=== PATIENT | male | born 1955 | race American Indian/Alaskan Native ===

== ENCOUNTER 2019-04-14 08:48 | Emergency (ER) | payer SELFPAY ==
[2019-04-14 08:54] VITALS: BP 149/87
--- NOTE | 2019-04-14 10:11 | Emergency Department Report ---
ED ENT HPI - General Chief complaint: Nosebleed Stated complaint: NOSE BLEED Time Seen by Provider: 04/14/19 09:59 Source: patient Mode of arrival: Ambulatory Limitations: No Limitations - History of Present Illness Initial comments: Patient is 63 years old male with no significant past medical history. Patient presented to the ER complaining of epistaxis for the last 3 days on and off mainly from the right nastril. Patient denied any history of injury recently. Patient denied any headache, weakness numbness or tingling sensation. MD complaint: epistaxis -: days(s) (3) Severity: moderate - Related Data Allergies Allergy/AdvReac Type Severity Reaction Status Date / Time No Known Allergies Allergy Unverified 04/14/19 08:51 ED Dental HPI - General Chief complaint: Nosebleed Stated complaint: NOSE BLEED Time Seen by Provider: 04/14/19 09:59 Source: patient Mode of arrival: Ambulatory Limitations: No Limitations - Related Data Allergies Allergy/AdvReac Type Severity Reaction Status Date / Time No Known Allergies Allergy Unverified 04/14/19 08:51 ED Review of Systems ROS: Stated complaint: NOSE BLEED Other details as noted in HPI Comment: All other systems reviewed and negative Constitutional: denies: chills, fever ENT: epistaxis Respiratory: denies: cough, orthopnea, shortness of breath, SOB with exertion, SOB at rest Cardiovascular: denies: chest pain, palpitations Gastrointestinal: denies: abdominal pain, nausea, vomiting Musculoskeletal: denies: back pain Neurological: denies: headache, weakness ED Past Medical Hx - Past Medical History Previous Medical History?: No - Surgical History Past Surgical History?: No - Social History Smoking Status: Current Every Day Smoker Substance Use Type: Alcohol ED Physical Exam - General Limitations: No Limitations General appearance: alert, in no apparent distress - Head Head exam: Present: atraumatic, normocephalic, normal inspection - Eye Eye exam: Present: normal appearance, PERRL - ENT ENT exam: Present: normal exam, normal orophraynx, other (right nostril with active bleeding) - Neck Neck exam: Present: normal inspection, full ROM. Absent: tenderness, me ningismus, lymphadenopathy, thyromegaly - Respiratory Respiratory exam: Present: normal lung sounds bilaterally - Cardiovascular Cardiovascular Exam: Present: regular rate, normal rhythm, normal heart sounds - GI/Abdominal GI/Abdominal exam: Present: soft, normal bowel sounds. Absent: distended, tenderness, guarding, rebound, rigid, organomegaly, mass, bruit, pulsatile mass, hernia - Extremities Exam Extremities exam: Present: normal inspection, full ROM, normal capillary refill - Back Exam Back exam: Present: normal inspection, full ROM. Absent: CVA tenderness (R), CVA tenderness (L) - Neurological Exam Neurological exam: Present: alert, oriented X3, CN II-XII intact, normal gait - Psychiatric Psychiatric exam: Present: normal mood - Skin Skin exam: Present: warm, intact, normal color ED Course Vital Signs 04/14/19 08:52 Temperature 97.8 F Pulse Rate 61 Respiratory 17 Rate Blood Pressure 149/87 O2 Sat by Pulse 99 Oximetry - Procedure Description Procedures done: Rapid Rhinocort applied to the right nastril. Epistaxis stopped. No complication. Patient tolerated the procedure very well. ED Medical Decision Making - Lab Data Result diagrams: 04/14/19 10:17 04/14/19 10:17 - Medical Decision Making Patient is 63 years old male with no significant past medical history. Patient presented to the ER complaining of epistaxis for the last 3 days on and off mainly from the right nastril. Patient denied any history of injury recently. Patient denied any headache, weakness numbness or tingling sensation. Nasal packing using Rhinocort stopped the bleeding. Labs reviewed and is unremarkable. Patient discharged home with amoxicillin and tramadol for pain and advised to follow-up with his primary care physician in the next 2-3 days for removal of the nasal packing or return to the ER. Critical care attestation.: If time is entered above; I have spent that time in minutes in the direct care of this critically ill patient, excluding procedure time. ED Disposition Clinical Impression: Epistaxis Disposition: DC-01 TO HOME OR SELFCARE Is pt being admited?: No Condition: Stable Instructions: Epistaxis (ED) Referrals: PRIMARY CARE, [Referring] - 3-5 Days
[2019-04-14 10:34] LABS: Basophils # (Auto) 0.1 K/mm3 (0.0-0.1); Basophils % (Auto) 1.2 % (0.0-1.8); Eosinophils # (Auto) 0.1 K/mm3 (0.0-0.4); Eosinophils % (Auto) 1.4 % (0.0-4.3); Hematocrit 48.2 % (35.5-45.6); Hemoglobin 16.4 gm/dl (11.8-15.2); Lymphocytes # (Auto) 1.6 K/mm3 (1.2-5.4); Lymphocytes % (Auto) 21.8 % (13.4-35.0); Mean Corpuscular HGB Conc 34 % (32-34); Mean Corpuscular Volume 97 fl (84-94); Monocytes # (Auto) 0.6 K/mm3 (0.0-0.8); Platelet Count 304 K/mm3 (140-440); Red Blood Count 4.96 M/mm3 (3.65-5.03); Red Cell Distribution Width 14.9 % (13.2-15.2)
[2019-04-14] MEDS ORDERED: ZOFRAN IM ONE (10:35)
[2019-04-14] MEDS ORDERED: MORPHINE IM ONE (10:35)
[2019-04-14 10:45] LABS: INR 0.98 (0.87-1.13)
[2019-04-14 10:46] LABS: Partial Thromboplastin Time 27.6 Sec. (24.2-36.6)
[2019-04-14 10:56] LABS: Alanine Aminotransferase 12 units/L (7-56); Albumin 4.2 g/dL (3.9-5); BUN/Creatinine Ratio 8; Blood Urea Nitrogen 8 mg/dL (9-20); Calcium 9.2 mg/dL (8.4-10.2); Hemolysis Index 41
== END 2019-04-14 11:50 | disposition home or self-care (01) ==
LOC: ED 08:48
DX: R04.0 Epistaxis (principal); F17.200 Nicotine dependence, unspecified, uncomplicated
CPT/HCPCS: 30901; 36415; 80053; 85025; 85610; 85730; 96372; 99283; J2270; J2405

== ENCOUNTER 2020-03-27 16:19 | Emergency (ER) | payer MEDICARE ==
[2020-03-27 16:26] VITALS: BP 133/74
--- NOTE | 2020-03-27 17:46 | Emergency Department Report ---
Chief Complaint: Extremity Injury, Upper Stated Complaint: RIGHT HAND SWOLLEN Time Seen by Provider: 03/27/20 17:41 - HPI History of Present Illness: 64-year-old -[place] male presents to the emergency room stating that he twisted his right hand hand while drilling on Sunday. Patient states that it was painful and he had swelling. Patient states that he took his Tylenol 3 wrapped the paper bag with apple cider vinegar and the swelling went down. - Exam Vital Signs: Vital Signs 03/27/20 16:22 Temperature 98.1 F Pulse Rate 80 Respiratory 16 Rate Blood Pressure 133/74 O2 Sat by Pulse 98 Oximetry Physical Exam: Patient is alert and oriented x3 no acute distress. Right upper extremity hand full range of motion no swelling is no tenderness. Amatory without difficulties MSE screening note: Focused history and physical exam performed. Due to findings the following was ordered: 64-year-old -[place] male presents to the emergency room stating that he twisted his right hand hand while drilling on Sunday. Patient states that it was painful and he had swelling. Patient states that he took his Tylenol 3 wrapped the paper bag with apple cider vinegar and the swelling went down. Patient has full range of motion of his right hand no swelling minimal tenderness. Discussed the patient to continue taking his Tylenol 3 and follow- up with his primary care provider. ED Disposition for [facility] [place]position: Z-07 MED SCREENING EXAM-LEFT Is pt being admited?: No Does the pt Need Aspirin: No Condition: Stable Additional Instructions: Discussed the patient to continue taking his Tylenol 3 and follow-up with his primary care provider. Referrals: PRIMARY CARE, [Primary Care Provider] - 3-5 Days
== END 2020-03-27 18:02 | disposition left against medical advice (07) ==
LOC: ED 16:19
DX: M79.641 Pain in right hand (principal); M79.89 Other specified soft tissue disorders
CPT/HCPCS: 99282

== ENCOUNTER 2021-03-31 13:30 | Emergency (ER) | payer MEDICARE ==
[2021-03-31] MEDS ORDERED: ASPIRIN 325 MG TAB PO ONE (13:58)
--- NOTE | 2021-03-31 14:41 | XRay Report ---
CHEST 2 VIEWS INDICATION / CLINICAL INFORMATION: CP. COMPARISON: None available. FINDINGS: SUPPORT DEVICES: None. HEART / MEDIASTINUM: No significant abnormality. LUNGS / PLEURA: No significant pulmonary or pleural abnormality. No pneumothorax. ADDITIONAL FINDINGS: No significant additional findings. IMPRESSION: 1. No acute findings. Signer Name: Mariusz Beltran MD Signed: 03/31/2021 2:36 PM Workstation Name: [email or web address]
[2021-03-31 15:18] LABS: Basophils # (Auto) 0.1 K/mm3 (0.0-0.1); Basophils % (Auto) 1.1 % (0.0-1.8); Eosinophils # (Auto) 0.1 K/mm3 (0.0-0.4); Eosinophils % (Auto) 0.9 % (0.0-4.3); Hematocrit 41.8 % (35.5-45.6); Hemoglobin 14.2 gm/dl (11.8-15.2); Lymphocytes # (Auto) 1.8 K/mm3 (1.2-5.4); Mean Corpuscular HGB Conc 34 % (32-34); Mean Corpuscular Volume 94 fl (84-94); Monocytes # (Auto) 0.5 K/mm3 (0.0-0.8); Monocytes % (Auto) 7.7 % (0.0-7.3); Platelet Count 258 K/mm3 (140-440); Red Blood Count 4.44 M/mm3 (3.65-5.03); Red Cell Distribution Width 14.2 % (13.2-15.2)
[2021-03-31 15:43] LABS: Alanine Aminotransferase 11 units/L (7-56); Albumin 4.3 g/dL (3.9-5); BUN/Creatinine Ratio 14; Blood Urea Nitrogen 11 mg/dL (9-20); Hemolysis Index 5
--- NOTE | 2021-03-31 16:28 | Event Note ---
ED Screening Note Date of service: 03/31/21 Time: 16:27 ED Screening Note: 65-year-old male patient with history of hyperlipidemia and hypertension presents to the emergency department with complaints of dizziness and palpitations starting this morning. No recent trauma. No history of similar symptoms. Patient states he "feels off balance, especially when he walks." He has been compliant with his medication regimen. No vomiting or diarrhea. BP 106/71; review of past medical records indicates his blood pressure is usually higher at baseline. General: Awake, appropriately interactive, no acute distress. Neck: Supple. Full range of motion intact. Cardiovascular: Normal peripheral perfusion. Pulmonary: No respiratory distress. Patient is speaking normally without use of accessory muscles. Skin: No apparent rashes or lesions. Neurological: No facial asymmetry. Speech is clear. Follows commands. Patient is alert and oriented. Musculoskeletal: Moves all four extremities spontaneously with normal range of motion. Psych: Cooperative. Appropriate mood and affect. I have greeted and performed a focused rapid initial assessment of this patient. A comprehensive ED assessment and evaluation of the patient, analysis of all test results, and completion of the medical decision-making process will be conducted by additional ED providers. This initial assessment/diagnostic orders/clinical plan/treatment(s) is/are subject to change based on patients health status, clinical progression and re-assessment. Further treatment and workup at subsequent clinical provider's discretion. Patient/guardian urged not to elope from the ED as their condition may be serious if not clinically assessed and managed.
--- NOTE | 2021-03-31 21:32 | Emergency Department Report ---
ED General Adult HPI - General Chief complaint: Chest Pain Stated complaint: IRREGULAR HEART BEAT Time Seen by Provider: 03/31/21 21:06 Source: patient Mode of arrival: Ambulatory Limitations: No Limitations - History of Present Illness Initial comments: Patient presents to the emergency department with a chief complaint of irregular heartbeat. Patient states today he felt unlike himself and was having heart palpitations. Patient states he went to the fire department to get evaluated and was told that his blood pressure was okay but he should come to the hospital to get further work-up done. Patient denies any chest pain, shortness of breath, or headache. Patient states that he sees a physician and Dr. Carty in [place]. -: Sudden Severity scale (0 -10): 0 Consistency: now resolved Improves with: none Worsens with: none Associated Symptoms: denies other symptoms Treatments Prior to Arrival: none - Related Data Previous Rx's Medication Instructions Recorded Last Taken Type Amoxicillin [Amoxicillin TAB] 875 mg PO BID #14 tablet 04/14/19 Unknown Rx Ondansetron [Zofran Odt] 4 mg PO Q8HR PRN #14 tab.rapdis 04/14/19 Unknown Rx traMADoL [Ultram 50 MG tab] 50 mg PO Q4HR PRN #14 tablet 04/14/19 Unknown Rx Allergies Allergy/AdvReac Type Severity Reaction Status Date / Time No Known Allergies Allergy Verified 03/31/21 21:07 ED Review of Systems ROS: Stated complaint: IRREGULAR HEART BEAT Other details as noted in HPI Comment: All other systems reviewed and negative Constitutional: denies: chills, fever Eyes: denies: eye pain, eye discharge, vision change ENT: denies: ear pain, throat pain Respiratory: denies: cough, shortness of breath, wheezing Cardiovascular: palpitations. denies: chest pain Endocrine: no symptoms reported Gastrointestinal: denies: abdominal pain, nausea, diarrhea Genitourinary: denies: urgency, dysuria Musculoskeletal: denies: back pain, joint swelling, arthralgia Skin: denies: rash, lesions Neurological: denies: headache, weakness, paresthesias Psychiatric: denies: anxiety, depression Hematological/Lymphatic: denies: easy bleeding, easy bruising ED Past Medical Hx - Past Medical History Previous Medical History?: Yes Hx GERD: Yes Additional medical history: high cholesterol - Surgical History Past Surgical History?: Yes Additional Surgical History: ulcer surgery - Social History Smoking Status: Never Smoker Substance Use Type: None - Medications Home Medications: Home Medications Medication Instructions Recorded Confirmed Last Taken Type Amoxicillin [Amoxicillin TAB] 875 mg PO BID #14 tablet 04/14/19 Unknown Rx Ondansetron [Zofran Odt] 4 mg PO Q8HR PRN #14 tab.rapdis 04/14/19 Unknown Rx traMADoL [Ultram 50 MG tab] 50 mg PO Q4HR PRN #14 tablet 04/14/19 Unknown Rx ED Physical Exam - General Limitations: No Limitations General appearance: alert, in no apparent distress - Head Head exam: Present: atraumatic, normocephalic - Eye Eye exam: Present: normal appearance, PERRL, EOMI - ENT ENT exam: Present: mucous membranes moist - Neck Neck exam: Present: normal inspection - Respiratory Respiratory exam: Present: normal lung sounds bilaterally. Absent: respiratory distress - Cardiovascular Cardiovascular Exam: Present: regular rate, normal rhythm. Absent: systolic murmur, diastolic murmur, rubs, gallop - GI/Abdominal GI/Abdominal exam: Present: soft, normal bowel sounds. Absent: distended, tenderness - Rectal Rectal exam: Present: deferred - Extremities Exam Extremities exam: Present: normal inspection - Back Exam Back exam: Present: normal inspection - Neurological Exam Neurological exam: Present: alert, oriented X3, CN II-XII intact. Absent: motor sensory deficit - Psychiatric Psychiatric exam: Present: normal affect, normal mood - Skin Skin exam: Present: warm, dry, intact, normal color. Absent: rash ED Course Vital Signs 03/31/21 13:46 Temperature 98.2 F Pulse Rate 72 Respiratory 18 Rate Blood Pressure 106/71 [Right] O2 Sat by Pulse 98 Oximetry ED Medical Decision Making - Lab Data Result diagrams: 03/31/21 14:51 03/31/21 14:51 Lab Results 03/31/21 03/31/21 03/31/21 Range/Units 14:51 14:51 16:48 WBC 6.5 (4.5-11.0) K/mm3 RBC 4.44 (3.65-5.03) M/mm3 Hgb 14.2 (11.8-15.2) gm/dl Hct 41.8 (35.5-45.6) % MCV 94 (84-94) fl MCH 32 (28-32) pg MCHC 34 (32-34) % RDW 14.2 (13.2-15.2) % Plt Count 258 (140-440) K/mm3 Lymph % (Auto) 28.0 (13.4-35.0) % Baker % (Auto) 7.7 H (0.0-7.3) % Eos % (Auto) 0.9 (0.0-4.3) % Baso % (Auto) 1.1 (0.0-1.8) % Lymph # (Auto) 1.8 (1.2-5.4) K/mm3 Baker # (Auto) 0.5 (0.0-0.8) K/mm3 Eos # (Auto) 0.1 (0.0-0.4) K/mm3 Baso # (Auto) 0.1 (0.0-0.1) K/mm3 Seg Neutrophils % 62.3 (40.0-70.0) % Seg Neutrophils # 4.1 (1.8-7.7) K/mm3 Sodium 139 (137-145) mmol/L Potassium 4.3 (3.6-5.0) mmol/L Chloride 103.3 (98-107) mmol/L Carbon Dioxide 29 (22-30) mmol/L Anion Gap 11 mmol/L BUN 11 (9-20) mg/dL Creatinine 0.8 (0.8-1.3) mg/dL Estimated GFR > 60 ml/min BUN/Creatinine Ratio 14 % Glucose 87 (75-100) mg/dL Calcium 9.0 (8.4-10.2) mg/dL Magnesium 2.20 (1.7-2.3) mg/dL Total Bilirubin 0.50 (0.1-1.2) mg/dL AST 27 (5-40) units/L ALT 11 (7-56) units/L Alkaline Phosphatase 117 (35-129) units/L Troponin T < 0.010 < 0.010 (0.00-0.029) ng/mL Total Protein 7.1 (6.3-8.2) g/dL Albumin 4.3 (3.9-5) g/dL Albumin/Globulin Ratio 1.5 % 03/31/21 Range/Units 20:27 WBC (4.5-11.0) K/mm3 RBC (3.65-5.03) M/mm3 Hgb (11.8-15.2) gm/dl Hct (35.5-45.6) % MCV (84-94) fl MCH (28-32) pg MCHC (32-34) % RDW (13.2-15.2) % Plt Count (140-440) K/mm3 Lymph % (Auto) (13.4-35.0) % Baker % (Auto) (0.0-7.3) % Eos % (Auto) (0.0-4.3) % Baso % (Auto) (0.0-1.8) % Lymph # (Auto) (1.2-5.4) K/mm3 Baker # (Auto) (0.0-0.8) K/mm3 Eos # (Auto) (0.0-0.4) K/mm3 Baso # (Auto) (0.0-0.1) K/mm3 Seg Neutrophils % (40.0-70.0) % Seg Neutrophils # (1.8-7.7) K/mm3 Sodium (137-145) mmol/L Potassium (3.6-5.0) mmol/L Chloride (98-107) mmol/L Carbon Dioxide (22-30) mmol/L Anion Gap mmol/L BUN (9-20) mg/dL Creatinine (0.8-1.3) mg/dL Estimated GFR ml/min BUN/Creatinine Ratio % Glucose (75-100) mg/dL Calcium (8.4-10.2) mg/dL Magnesium (1.7-2.3) mg/dL Total Bilirubin (0.1-1.2) mg/dL AST (5-40) units/L ALT (7-56) units/L Alkaline Phosphatase (35-129) units/L Troponin T < 0.010 (0.00-0.029) ng/mL Total Protein (6.3-8.2) g/dL Albumin (3.9-5) g/dL Albumin/Globulin Ratio % - EKG Data -: EKG Interpreted by Me EKG shows normal: sinus rhythm Rate: normal - Radiology Data Radiology results: report reviewed - Medical Decision Making Discussed laboratory values and EKG with patient as well as imaging. Critical care attestation.: If time is entered above; I have spent that time in minutes in the direct care of this critically ill patient, excluding procedure time. ED Disposition Clinical Impression: Palpitations Disposition: DC- TO HOME OR SELFCARE Is pt being admited?: No Does the pt Need Aspirin: No Condition: Stable Instructions: Palpitations Additional Instructions: Return if worse Referrals: PRIMARY CARE, [Primary Care Provider] - 3-5 Days QUYEN CASTILLO MD [Staff Physician] - 3-5 Days Time of Disposition: 21:31
[2021-03-31 21:41] VITALS: BP 135/76
--- NOTE | 2021-04-01 10:16 | Electrocardiograph Report ---
[facility] Test Date: 2021-03-31 Test Time: 13:50:13 Pat Name: GHADA GREENFIELD Department: Room: Gender: M [employer]: PHUC : 1955 Requested By: LUZ ELENA REYES Order Number: [id number] Reading MD: Yao Alanis Measurements Intervals Zenia Rate: 60 P: 44 PA: 200 QRS: 40 QRSD: 81 T: 59 QT: 410 QTc: 410 Interpretive Statements Sinus rhythm No previous ECG available for comparison Electronically Signed On 04-01-2021 10:16:09 EDT by Yao Alanis
== END 2021-03-31 21:41 | disposition home or self-care (01) ==
LOC: ED 13:30
DX: R00.2 Palpitations (principal); K21.9 Gastro-esophageal reflux disease without esophagitis; Z98.890 Other specified postprocedural states; Z79.2 Long term (current) use of antibiotics; Z79.899 Other long term (current) drug therapy
CPT/HCPCS: 36415; 71046; 80053; 83735; 84484; 85025; 93005

== ENCOUNTER 2022-05-14 22:03 | Emergency (ER) | payer MEDICARE ==
[2022-05-14 23:40] VITALS: BP 136/78
--- NOTE | 2022-05-15 04:30 | XRay Report ---
CHEST 2 VIEWS INDICATION / CLINICAL INFORMATION: cough. COMPARISON: Chest x-ray 03/31/2021 FINDINGS: SUPPORT DEVICES: None. HEART / MEDIASTINUM: Heart size and mediastinal contour appear within normal limits. LUNGS / PLEURA: Emphysematous changes are suggested similar in appearance to previous study. Hilar st ructures and pulmonary vasculature demonstrates no significant abnormalities. No pneumothorax. BONES: No significant osseous abnormality. ADDITIONAL FINDINGS: No significant additional findings. IMPRESSION: 1. Stable emphysematous chest. No evidence of superimposed acute pathology. Signer Name: Bridger Gage II, MD Signed: 05/15/2022 4:26 AM Workstation Name: [id number]
--- NOTE | 2022-05-15 06:23 | Emergency Department Report ---
- General Chief Complaint: Weakness Stated Complaint: SOB/BODY PAIN Time Seen by Provider: 05/15/22 04:07 Source: patient Mode of arrival: Ambulatory Limitations: No Limitations - History of Present Illness Initial Comments: 66-year-old male presents emerged from complaining of cough congestion coryza which have been waxing waning over the last couple days and is worried about pena ving an infection. Reports no hemoptysis hematemesis hematochezia, no nausea vomiting. MD Complaint: cough, nasal congestion -: Gradual Severity: mild Quality: dull Consistency: constant Improves With: nothing Worsens With: nothing Associated Symptoms: denies other symptoms, myalgias, cough. denies: vomiting, dysuria, right sweats, weight loss, hoarseness - Related Data Previous Rx's Medication Instructions Recorded Last Taken Type Amoxicillin [Amoxicillin TAB] 875 mg PO BID #14 tablet 04/14/19 Unknown Rx Ondansetron [Zofran Odt] 4 mg PO Q8HR PRN #14 tab.rapdis 04/14/19 Unknown Rx traMADoL [Ultram 50 MG tab] 50 mg PO Q4HR PRN #14 tablet 04/14/19 Unknown Rx Albuterol Mdi (or & Nicu Only) 1 puff IH Q4-6H PRN #1 inha 05/15/22 Unknown Rx [ProAir HFA Inhaler] Azithromycin [Zithromax] 500 mg PO QDAY #3 tablet 05/15/22 Unknown Rx Benzonatate [Tessalon Perles] 100 mg PO Q8HR #20 capsule 05/15/22 Unknown Rx predniSONE [Deltasone] 20 mg PO QDAY #5 tab 05/15/22 Unknown Rx Allergies Allergy/AdvReac Type Severity Reaction Status Date / Time No Known Allergies Allergy Verified 03/31/21 21:07 ED Review of Systems ROS: Stated complaint: SOB/BODY PAIN Other details as noted in HPI Comment: All other systems reviewed and negative ED Past Medical Hx - Past Medical History Hx GERD: Yes Hx of Cancer: Yes (PROSTATE CANCER) Additional medical history: high cholesterol - Surgical History Additional Surgical History: ulcer surgery - Social History Smoking Status: Unknown if ever smoked - Medications Home Medications: Home Medications Medication Instructions Recorded Confirmed Last Taken Type Amoxicillin [Amoxicillin TAB] 875 mg PO BID #14 tablet 04/14/19 Unknown Rx Ondansetron [Zofran Odt] 4 mg PO Q8HR PRN #14 tab.rapdis 04/14/19 Unknown Rx traMADoL [Ultram 50 MG tab] 50 mg PO Q4HR PRN #14 tablet 04/14/19 Unknown Rx Albuterol Mdi (or & Nicu Only) 1 puff IH Q4-6H PRN #1 inha 05/15/22 Unknown Rx [ProAir HFA Inhaler] Azithromycin [Zithromax] 500 mg PO QDAY #3 tablet 05/15/22 Unknown Rx Benzonatate [Tessalon Perles] 100 mg PO Q8HR #20 capsule 05/15/22 Unknown Rx predniSONE [Deltasone] 20 mg PO QDAY #5 tab 05/15/22 Unknown Rx ED Physical Exam - General Limitations: No Limitations General appearance: alert, in no apparent distress - Head Head exam: Present: atraumatic, normocephalic - Eye Eye exam: Present: normal appearance - ENT ENT exam: Present: mucous membranes moist - Neck Neck exam: Present: normal inspection - Respiratory Respiratory exam: Present: normal lung sounds bilaterally, rhonchi. Absent: respiratory distress, accessory muscle use, decreased breath sounds, prolonged expiratory - Cardiovascular Cardiovascular Exam: Present: regular rate, normal rhythm. Absent: systolic murmur, diastolic murmur, rubs, gallop - GI/Abdominal GI/Abdominal exam: Present: soft, normal bowel sounds - Rectal Rectal exam: Present: deferred - Extremities Exam Extremities exam: Present: normal inspection - Back Exam Back exam: Present: normal inspection - Neurological Exam Neurological exam: Present: alert, oriented X3 - Psychiatric Psychiatric exam: Present: normal affect, normal mood - Skin Skin exam: Present: warm, dry, intact, normal color. Absent: rash ED Course Vital Signs 05/14/22 23:36 Temperature 99.2 F Pulse Rate 88 Respiratory 16 Rate Blood Pressure 136/78 Blood Pressure 136/78 [Right] O2 Sat by Pulse 100 Oximetry ED Medical Decision Making - Medical Decision Making This patient presents with acute cough, most consistent with bronchitis. Differential diagnosis includes COVID-19, bronchitis, pneumonia hyperreactive airway disease,. Presentation not consistent with acute bacterial pneumonia, influenza, asthma, transient airway hyperresponsiveness. Presentation not consistent with chronic causes of cough (including GERD, asthma, postnasal discharge, medication side effect, CHF, lung cancer or mass). Hyperinflated CXR Plan: , supportive care, reassess Critical care attestation.: If time is entered above; I have spent that time in minutes in the direct care of this critically ill patient, excluding procedure time. ED Disposition Clinical Impression: Bronchitis Disposition: 01 HOME / SELF CARE / HOMELESS Is pt being admited?: No Does the pt Need Aspirin: No Condition: Stable Instructions: How to Use a Metered Dose Inhaler, Upper Respiratory Infection, Adult, Apaa-re-Aynb, How to Use a Dry Powder Inhaler, Chronic Bronchitis (ED), Acute Bronchitis, Adult, Chronic Obstructive Pulmonary Disease Prescriptions: predniSONE [Deltasone] 20 mg PO QDAY #5 tab Albuterol Mdi (or & Nicu Only) [ProAir HFA Inhaler] 1 puff IH Q4-6H PRN #1 inha PRN Reason: Cough Benzonatate [Tessalon Perles] 100 mg PO Q8HR #20 capsule Azithromycin [Zithromax] 500 mg PO QDAY #3 tablet Referrals: FORTUNATO PERALTA MD [Primary Care Provider] - 3-5 Days
== END 2022-05-15 04:15 | disposition home or self-care (01) ==
LOC: ED 22:03
DX: J40 Bronchitis, not specified as acute or chronic (principal); K21.9 Gastro-esophageal reflux disease without esophagitis; Z85.46 Personal history of malignant neoplasm of prostate; E78.00 Pure hypercholesterolemia, unspecified; Z98.890 Other specified postprocedural states
CPT/HCPCS: 71046; 99283